=== PATIENT | female | born 1975 | race Two or more races ===

== ENCOUNTER 2018-03-19 05:50 | Day surgery (SDC) | payer OTHER ==
[~2018-03-19] VITALS: Ht 171.4 cm; Wt 81.7 kg
[~2018-03-19 05:50] MED LIST: GLUCOSAMINE CH1 EAC2 PO; NAPROSYN500 MG PO; SYMBICORT60 INHALAT IH; VENTOLIN HFA18 GM IH
[2018-03-19 06:32] LABS: BASOPHIL (%) 0.8 % (0-1); BASOPHIL COUNT 0.1 K/uL (0-0.1); EOSINOPHIL (%) 9.6 % (0-5); EOSINOPHIL COUNT 0.7 K/uL (0-0.3); HEMATOCRIT 39.2 % (36.0-46.0); HEMOGLOBIN 11.8 G/DL (11.9-15.5); IMMATURE GRANULOCYTE (%) 0.3 % (0.0-0.7); LYMPHOCYTE (%) 29.5 % (15-42); LYMPHOCYTE COUNT 2.2 K/uL (1.0-2.8); MCH 24.1 PG (29.0-34.0); MCHC 30.1 G/DL (30.0-36.0); MONOCYTE (%) 12.6 % (3-12); NEUTROPHIL (%) 47.2 % (45-76); NEUTROPHIL COUNT 3.6 K/uL (1.8-6.4); PLATELET COUNT 267 K/uL (156-360); RBC DIS.WIDTH-CV 16.9 % (11.8-14.6); RBC DIS.WIDTH-SD 49.3 % (39-53); WHITE BLOOD COUNT 7.5 K/uL (4.1-10.2)
[2018-03-19 06:56] VITALS: BP 113/67
[2018-03-19] MEDS ORDERED: PERCOCET 5/31 TABLET PO (08:22)
[2018-03-19] MEDS ORDERED: MOTRIN800 MG PO (08:22)
[2018-03-19 13:25] LABS: HEMATOCRIT 34.2 % (36.0-46.0); HEMOGLOBIN 10.6 G/DL (11.9-15.5); MCH 24.8 PG (29.0-34.0); MCV 79.9 FL (83-99); RBC DIS.WIDTH-SD 49.5 % (39-53); RED BLOOD COUNT 4.28 M/uL (3.80-5.20); WHITE BLOOD COUNT 11.5 K/uL (4.1-10.2)
[2018-03-19 14:31] LABS: PLAT.SUFFICIENCY ADEQUATE; PLATELET COUNT 221 K/uL (156-360)
[2018-03-19 14:50] VITALS: BP 138/88
[2018-03-19 15:50] VITALS: BP 118/69
[2018-03-19 16:49] VITALS: BP 120/68
== END 2018-03-19 16:50 | disposition home or self-care (01) ==
LOC: SDC 05:50
PROVIDERS: Obstetrics & Gynecology
DX: D25.1 Intramural leiomyoma of uterus (principal); N92.0 Excessive and frequent menstruation with regular cycle; J45.909 Unspecified asthma, uncomplicated; Z87.891 Personal history of nicotine dependence
CPT/HCPCS: 84702; 85025; 85027; 86850; 86900; 86901; 86920; 88307; J0131; J1170; J2001; J2250; J2405; J2710; J2795; J3010; J3475; J7120; J7643; S0020